=== PATIENT | female | born 2005 | race Caucasian/White ===

== ENCOUNTER 2025-05-10 13:53 | Outpatient (CLI) | payer OTHER, SELFPAY ==
--- OUTSIDE RECORDS SUMMARY | 2005-12-31 | XMS_ITS | Encounter Summary ---
Author Organization [facility] Address [address] [place] [address] Care Team Providers Care Facing Cutting Machine Operator Name Role Phone Unavailable Primary Care Provider Unavailabl e Encounter Details Date Type Department Care Team (Late st Contact Info) Description 12/31/2005 Hospital Encounter [facility] Department of Radiology [address] [place] [phone] Social History Tobacco Use Types Packs/Day Years Used Date Smoking Tobacco: Never Smokeless Tobacco: Never Intimate Partner Violence Answer Date R ecorded If you are in a relationship , do you feel safe in that relationship? Yes 09/30/2019 Safe in relationship? (18 and older) Not on file 09/30/2019 Safety and Environment Answer Date Deon rded Do you have any concerns of physical abuse, sexual abuse, or neglect of your child? No 09/30/2019 Is an adult hurting you or your family? No 09/30/2019 Has someone ever touched you in a sexual way that was not ok with you? No 09/30/2019 Someone hurting you or family (18 and older) Not on file 09/30/2019 Historical abuse worry Not on file 0 If you have firearms in the home, are they all in locked storage AND unloaded? Not on file 09/30/2019 Comments Unknown Sex and Gender Information Value Date Recorded Sex Assigned at Not on file Legal Sex Female 5:16 AM EST Gender Identity Not on file Sexual Orientation Not on file documented as of this encounter Plan of Treatment Not on file documented as of this encounter Visit Diagnoses Not on filedocumented in this encounter
--- OUTSIDE RECORDS SUMMARY | 2025-05-11 10:30 | XMS_ITS | Clinical Summary ---
Author Organization [facility] Address [address] [place] [address] Care Team Providers Care Tax Assessor Name Role Phone Unavailable Primary Care Provider Unavailabl e Source Comments This information has been disclosed to you from confidential records protectedfrom disclosure by state law. You shall make no further disclosure of thisinformation without the specific, written, and informed release of theindividual to whom it pertains, or as otherwise permitted by law. A generalauthorization for the release of medical or other information is not sufficientfor the purposes of therelease of HIV test results or diagnoses. [id number] Social History Tobacco Use Types Packs/Day Years Used Date Smoking Tobacco: Never Assessed Comments Unknown Sex and Gender Information Value Date Recorded Sex Assigned at Not on file Legal Sex Female 9:28 PM EST Gender Identity Not on file Sexual Orientation Not on file Plan of Treatment Not on file Insurance [employer] [facility]
--- OUTSIDE RECORDS SUMMARY | 2025-05-11 10:30 | XMS_ITS | Clinical Summary ---
Author Organization [facility] Address [address] [place] [address] Care Team Providers Care Charge Histotechnologist Name Role Phone Martinez Jackson M.D. Primary Care Provider + Source Comments [facility] is fully rolled out with thefollowing exceptions:General Clinical Research [facility] Allergies No known active allergies Medications norgestimate-eth inyl estradiol (ORTHO-CYCLEN) 0.25-35 MG-MCG tablet Take 1 Tab by mouth. 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 Social History Tobacco Use Types Packs/Day Years [...] on file Sexual Orientation Not on file Last Filed Vital Signs Vital Sign Reading Time Taken Comments Blood Pressure 127/70 09/30/2019 1:59 PM EST Pulse 80 09/30/2019 1:59 PM EST Temperature - - Respiratory Rate - - Oxygen Saturation - - Inhaled Oxygen Concentration - - Weight 75.7 kg (166 lb 14.2 oz) 09/30/2019 1:59 PM EST Height 164.5 cm (5' 4.76 ) 09/30/2019 1:59 PM ES T Body Mass Index 27.97 09/30/2019 1:59 PM EST Plan of Treatment Health Maintenance Due Date Last Done Comments MENINGOCOCCAL B VACCINE (1 of 2 - Standard) 2020 AMB SEASONAL FLU VACCINE (#1) 05/02/2025 COVID-19 Vaccine ( - season) 2025 DTAP/Tdap/Td IMMUNIZATION (7 - Td or Tdap) 10/29/2025 10/30/2015, 04/11/2008, 04/11/2008, Additional history exists HEPATITIS B IMMUNIZATION Completed 005, 2004, 2004 HIB IMMUNIZATION Completed 04/11/2005, , 2004 PNEUMOCOCCAL IMMUNIZATION Aged Out 2004, 2004, 2004, Additional history exists No longer eligible based on patient's age to complete this topic IPV IMMUNIZATION Completed 04/11/2008, , 07/19/2005, Additional history exists MMR IMMUNIZATION Completed 04/11/2008, 04/11/2005 VARICELLA IMMUNIZATION Completed 04/11/2008, 2004 MCV4 IMMUNIZATION Aged Out 10/30/2015 No longer eligible based on patient's age to complete this topic HPV IMMUNIZATION Completed 09/03/2016, , 02/12/2016 HEPATITIS A IMMUN (OPTIONAL 2-17 YRS) Discontinued 05/19/2018, 11/13/2017 Respiratory Syncytial Virus (RSV) <20mo Aged Out No longer eligible based on patient's age to complete this topic Insurance AETNA [facility] Care Teams Charge Histotechnologist Relationship Specialty Start Date End Date Martinez Jackson M.D. [place] [phone] [facility] [place] [address] PCP - General External Family Practice 09/22/19
--- OUTSIDE RECORDS SUMMARY | 2025-05-11 10:30 | XMS_ITS | Clinical Summary ---
Author Organization [facility] Address [address] [place], [place] [phone] Phone Care Team Providers Care Byproduct Engineer Name Role Phone Martinez Jackson MD Primary Care Provider Allergies Active Allergy Reactions Criticality Noted Date Comments Bee Pollen Anaphylaxis High 01/15/2017 Medications norgestimate-et hinyl estradioL (ESTARYLLA) 0.25-35 mg-mcg Oral TabletIndicatio ns:Menorrhagia with irregular cycle Take 1 Tablet by mouth daily. 28 Tablet 11 09/03/2024 Active hydrOXYzine (VISTARIL) 25 mg Oral CapsuleIndicati ons:Urticaria Take 1 Capsule by mouth 3 times daily as needed. 30 Capsule 02/15/2025 Active fluconazole (DIFLUCAN) 150 mg Oral Tablet Take 1 Tablet by mouth once for 1 dose. 1 Tablet 05/09/2025 05/09/20 25 Active Problems Problem Noted Date Diagnosed Date Acute appendicitis with loca lized peritonitis, without perforation, abscess, or gangrene 11/20/2024 Vapes nicotine containing substance 09/03/2024 Assessment & Plan (09/03/2024 8:49 AM EST): Encouraged cessation Menorrhagia with irregular cycle 05/07/2019 Assessment & Plan (09/03/2024 8:49 AM EST): On depo for 4 years, wanting to switch back to OCP Orders: norgestimate-ethinyl estradioL (ESTARYLLA) 0.25-35 mg-mcg Oral Tablet; Take 1 Tablet by mouth daily. 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 Recommended family complete the treatment. We will go and put her on homebound as she is not inclined to go to school under the circumstances and I agree. We will put her on homebound until she has enough resumption of her facial function that she looks more normal to her peers. Discussed the natural history of the disease. They do have neurology follow-up at the end of the month if she is not improved by that point although I advised and there was probably really nothing that anyone could do other than the treatment she is already taking. Acne vulgaris 05/07/2019 06/21/2020 Overview (05/07/2019): Discussed skin care. Menstrual regulation may help - rx for OCP Encounters Date Type Department Care Team Description 02/18/2025 Results Follow-Up [facility] [address] [place] [phone] Hamida Olvera APRN ALLERGEN, FOOD, COMMON ADULT PANEL-REF LAB, ALLERGEN, REGION 5 RESPIRATORY PANEL-REF LAB 02/15/2025 10:00 AM EDT Office Visit [facility] [place] [address] [place] [phone] Hamida Olvera APRN Urticaria (Primary Dx) from Last 3 Months Immunizations Immunization Administration Dates Next Due DTaP 04/11/2008, 5,2004,08/15,2004 DTaP, Unspecified Formulation 04/11/2008 ,07/19/2005,2004,08/15,2004 HPV 9 Valent 09/03/2016,04/16/2016,02/12/2016 Hepatitis A, Ped/Adol, 2 Dose 05/19/2018, 018 Hepatitis B, Adult 11/17/2023 Hepatitis B, Ped/Adol 04/11/2005,2004,06/01 Hepatitis B, Unspecified Formulation 04/11/2005, 2004,2004 HiB, Unspecified Formulation 04/11/2005,08/15/20 04,2004 IPV 04/11/2008, 6,07/19/2005,08/15,2004 Influenza Patient Reported 07/02/2024 Influenza Vaccine Quadrivalent 11/17/2023 LAST MANUFACTURED 2010-Pneum ococcal Conjugate 7 Valent 07/17/2005,2004,2004,06/13 MMR 04/11/2008,04/11/2005 Meningococcal Conjugate 06/21/2020,10/30/2015 Meningococcal MCV4, Unspecif ied Formulation 10/30/2015 PPD Test 11/17/2023 Tdap 10/30/2015 Varicella 11/17/2023,04/11/2008,04/11/2005 Surgical History Surgery Date Site/Laterality Comments APPENDECTOMY 11/21/2024 N/A ROBOTIC APPENDECTOMY; Surgeon: Uli Mcclain MD; Location: [facility] MAIN OR; Service: General Medical History Medical History Date Comments Allergy ADHD (attention deficit hyperactivity disorder) Family History Medical History Relation Name Comments No Known Problems Brother 1 No Known Problems Brother 2 No Known Problems Maternal Grandfather No Known Problems Maternal Grandmother Asthma Mother Hypertension Mother Migraines Mother Cancer Paternal Grandfather No Known Problems Paternal Grandmother Breast Cancer Neg Hx Colon Cancer Neg Hx Relation Name Status Comments Brother 1 Alive Brother 2 Alive Father Alive Maternal Grandfather Alive Maternal Grandmother Alive Mother Alive Paternal Grandfather Alive Paternal Grandmother Alive Social History Tobacco Use Types Packs/Day Years Used Date Smoking Tobacco: Never Smokeless Tobacco: Never Tobacco Cessation:Counseling Given: Not Answered Alcohol Use Standard Drinks/Week Comments No 0 (1 standard drink = 0.6 oz pur e alcohol) [facility] Utilities Answer Date Recorded In the past 12 months has th e electric, gas, oil, or water company threatened to shut off services in your home? No 11/21/2024 Overall Financial Resource Strain (CARDIA) Answe r Date Recorded How hard is it for you to pa y for the very basics like food, housing, medical care, and heating? Not hard at all 11/21/2024 PHQ-2 Answer Date Recorded PHQ-2 Total Score 0 11/21/2024 [facility] - Occupational Stress Questionnaire Answer Date Recorded Do you feel stress - tense, restless, nervous, or anxious, or unable to sleep at night because your mind is troubled all the time - these days? Not at all 11/23/2024 Exercise Vital Sign Answer Date Recorde d On average, how many days pe r week do you engage in moderate to strenuous exercise (like a brisk walk)? 0 days 11/23/2024 On average, how many minutes do you engage in exercise at this level? 0 min 11/23/2024 Hunger Vital Sign Answer Date Recorded Within the past 12 months, y ou worried that your food would run out before you got the money to buy more. Never true 11/22/19 25 Within the past 12 months, t he food you bought just didn't last and you didn't have money to get more. Never true 11/21/2024 Housing Stability Vital Sign Answer Zachery e Recorded In the last 12 months, was t here a time when you were not able to pay the mortgage or rent on time? No 11/23/2024 In the past 12 months, how m any times have you moved where you were living? 1 11/23/2024 At any time in the past 12 m [facility], were you homeless or living in a skilled nursing (including now)? No 11/23/2024 [facility] HRSN CMS IP Transportation Answer D ate Recorded In the past 12 months, has l ack of reliable transportation kept you from medical appointments, meetings, work or from getting things needed for daily living? No 11/21/2024 Sexually Active Control Partners Comments Yes Male Comments No Sex and Gender Information Value Date Recorded Sex Assigned at Not on file Legal Sex Female 8:21 PM EDT Gender Identity Not on file Sexual Orientation Not on file Obstetrics History Last Filed Vital Signs Vital Sign Reading Time Taken Comments Blood Pressure 118/72 02/15/2025 10:04 AM EDT Pulse 76 02/15/2025 10:04 AM EDT Temperature 36.3 C (97.3 F) 02/15/2025 10:04 AM EDT Respiratory Rate 18 02/15/2025 10:04 AM EDT Oxygen Saturation 97% 02/15/2025 10:04 AM EDT Inhaled Oxygen Concentration - - Weight 72.6 kg (160 lb) 02/15/2025 10:04 AM EDT Height 165.1 cm (5' 5 ) 11/21/2024 12:36 AM EDT Body Mass Index 26.63 11/21/2024 12:36 AM EDT Plan of Treatment Health Maintenance Due Date Last Done Comments Meningococcal B Vaccine (1 of 2 - Standard) 2020 Cervical Cancer Screening 2025 Pap Smear 2025 COVID-19 Vaccine ( season) 2025 Influenza Vaccine (#1) 2025 , 11/17/2023, 11/27/2016 (Declined), Additional history exists Annual Wellness Exam 09/03/2025 09/03/2024 Chlamydia Screening 09/03/2025 09/03/2024, 12/19/2021, 01/02/2021 DTaP/TDaP/Td (7 - Td or Tdap) 10/29/2025 10/30/2015, 04/11/2008, 04/11/2008, Additional history exists Pneumococcal Vaccine 0-49 Aged Out 2004, 2004, 2004, Additional history exists No longer eligible based on patient's age to complete this topic HPV Completed 09/03/2016, 04/01, 02/12/2016 Hepatitis B Vaccine Completed 11/17/2023, 04/11/2005, 04/11/2005, Additional history exists Goals Goal Patient Goal Type Associated Problems Recent Progress Patient-Stated? Author Maintain a healthy diet, exercise regularly and maintain an ideal body weight General No Kota Hickey MD Procedures Procedure Name Priority Date/Time Associated Diagnosis Comments ALLERGEN, REGION 5 RESPIRATORY PANEL-REF LAB Routine 02/15/2025 10:41 AM EDT Urticaria PEDXMZZKY-KSRXE-9,3- GALACTOSE (ALPHA-GAL) IGE - REF LAB Routine 02/15/2025 10:41 AM EDT Urticaria ALLERGEN, FOOD, COMMON ADULT PANEL-REF LAB Routine 02/15/2025 10:41 AM EDT Urticaria CHLAMYDIA/GC BY TMA Routine 09/03/2024 8 :57 AM EST Screening for STDs (sexually transmitted diseases) from Last 3 Months or Most Recently Relevant to Health Maintenance Results * KIAJBDZKY-XSDOS-8,3-GALACTOSE (ALPHA-GAL) IGE - REF LAB (02/15/2025 10:41 AM EDT) Alpha-Gal IgE <0.10 <=0.09 kU/L 02/18/2025 1:55 PM EDT [facility] Comment: INTERPRETIVE INFORMATION: Allergen, Food, Alpha-Gal, IgE Allergen results of 0.10-0.34 kU/L are intended for specialist use as the clinical relevance is undetermined. Even though increasing ranges are reflective of increasing concentrations of allergen-specific IgE, these concentrations may not correlate with the degree of clinical response or skin testing results when challenged with a specific allergen. The correlation of allergy laboratory results with clinical history and in vivo reactivity to specific allergens is essential. A negative test may not rule out clinical allergy or even anaphylaxis. Performed By: [facility] [address] [place] [address] Manager Trade Marketing: Koby Johnson MD, PhD CLIA Number: [id number] Blood VENOUS BLOOD / Unknown Venipuncture / Unknown 02/15/2025 10:41 AM EDT 02/15/2025 10:41 AM EDT Hamida Olvera APRN CHEMISTRY ORDERABLES Final Result [facility] [address], [place] [id number] * ALLERGEN, REGION 5 RESPIRATORY PANEL-REF LAB (02/15/2025 10:41 AM EDT) [facility] Common Ragweed <0.10 <=0.34 kU/L 02/18/2025 6:38 AM EDT [facility] CockroachGerman 0.10 <=0.34 kU/L 02/18/2025 6:38 AM EDT [facility] Bristol Tree <0.10 <=0.34 kU/L 02/18/2025 6:38 AM EDT [facility] Heron Tree <0.10 <=0.34 kU/L 02/18/2025 6:38 AM EDT [facility] Pecan Tree <0.10 <=0.34 kU/L 02/18/2025 6:38 AM EDT [facility] Mouse Epi <0.10 <=0.34 kU/L 02/18/2025 6:38 AM EDT [facility] M. racemosus <0.10 <=0.34 kU/L 02/18/2025 6:38 AM EDT [facility] White [place] Tree <0.10 <=0.34 kU/L 02/18/2025 6:38 AM EDT [facility] Dog Dander <0.10 <=0.34 kU/L 02/18/2025 6:38 AM EDT [facility] Sheep [place] <0.10 <=0.34 kU/L 02/18/2025 6:38 AM EDT [facility] Comment: Performed By: [facility] [address] [place] [id number] Manager Trade Marketing: Koby Johnson MD, PhD CLIA Number: [id number] IgE 72 <=214 kU/L 02/18/2025 6:38 AM EDT [facility] Comment: REFERENCE INTERVAL: Immunoglobulin E, Serum Access complete set of age- and/or gender-specific reference intervals for this test in the [facility] Test Directory ([employer]). Alternaria alt <0.10 <=0.34 kU/L 02/18/2025 6:38 AM EDT [facility] Ouray/Maple <0.10 <=0.34 kU/L 02/18/2025 6:38 AM EDT [facility] Cat Epi/Dander <0.10 <=0.34 kU/L 02/18/2025 6:38 AM EDT [facility] Mountain [place] Tree <0.10 <=0.34 kU/L 02/18/2025 6:38 AM EDT [facility] Bronx Tree <0.10 <=0.34 kU/L 02/18/2025 6:38 AM EDT [facility] Pigweed <0.10 <=0.34 kU/L 02/18/2025 6:38 AM EDT [facility] Kyrgyz Thistle <0.10 <=0.34 kU/L 02/18/2025 6:38 AM EDT [facility] Freeman Grass <0.10 <=0.34 kU/L 02/18/2025 6:38 AM EDT [facility] Allergen, Fungi/Mold, Hormodendrum IgE <0.10 <=0.34 kU/L 02/18/2025 6:38 AM EDT [facility] Elm Tree <0.10 <=0.34 kU/L 02/18/2025 6:38 AM EDT [facility] [place] Tree <0.10 <=0.34 kU/L 02/18/2025 6:38 AM EDT [facility] Lykens <0.10 <=0.34 kU/L 02/18/2025 6:38 AM EDT [facility] Allergen, Fungi/Mold, A. fumigatus IgE <0.10 <=0.34 kU/L 02/18/2025 6:38 AM EDT [facility] D pteronyssinus 0.17 <=0.34 kU/L 02/18/2025 6:38 AM EDT [facility] D farinae 0.11 <=0.34 kU/L 02/18/2025 6:38 AM EDT [facility] Bermuda Grass <0.10 <=0.34 kU/L 02/18/2025 6:38 AM EDT [facility] White Johan Tree <0.10 <=0.34 kU/L 02/18/2025 6:38 AM EDT [facility] P.Notatum <0.10 <=0.34 kU/L 02/18/2025 6:38 AM EDT [facility] Blood VENOUS BLOOD / Unknown Venipuncture / Unknown 02/15/2025 10:41 AM EDT 02/15/2025 10:41 AM EDT Hamida Olvera DRUG SAFETY COORDINATOR IMMUNOLOGY ORDERABLES Final Result [facility] [employer] [address] [place] [address] * ALLERGEN, FOOD, COMMON ADULT PANEL-REF LAB (02/15/2025 10:41 AM EDT) IgE 72 <=214 kU/L 02/18/2025 6:51 AM EDT [facility] Comment: REFERENCE INTERVAL: Immunoglobulin E, Serum Access complete set of age- and/or gender-specific reference intervals for this test in the [facility] Test Directory ([employer]). Egg White <0.10 <=0.34 kU/L 02/18/2025 6:51 AM EDT [facility] Milk <0.10 <=0.34 kU/L 02/18/2025 6:51 AM EDT [facility] Sunny Side <0.10 <=0.34 kU/L 02/18/2025 6:51 AM EDT [facility] Soybean <0.10 <=0.34 kU/L 02/18/2025 6:51 AM EDT [facility] Wheat <0.10 <=0.34 kU/L 02/18/2025 6:51 AM EDT [facility] Peanut <0.10 <=0.34 kU/L 02/18/2025 6:51 AM EDT [facility] Allergen, Heron <0.10 <=0.34 kU/L 02/18/2025 6:51 AM EDT [facility] Clam <0.10 <=0.34 kU/L 02/18/2025 6:51 AM EDT [facility] Allergen, Fish, Cod, f3 <0.10 <=0.34 kU/L 02/18/2025 6:51 AM EDT [facility] Allergen, Scallops,f338 <0.10 <=0.34 kU/L 02/18/2025 6:51 AM EDT [facility] Allergen, Shrimp, f24 <0.10 <=0.34 kU/L 02/18/2025 6:51 AM EDT [facility] [employer] Immcap Score See Note 02/18/2025 6:51 AM EDT [facility] [employer] Comment: REFERENCE INTERVAL: Allergen, Interpretation Less than 0.10 kU/L......Class 0.....No significant level detected 0.10-0.34 kU/L...........Class 0/1...Clinical relevance undetermined 0.35-0.70 kU/L...........Class 1.....Low 0.71-3.50 kU/L...........Class 2.....Moderate 3.51-17.50 kU/L..........Class 3.....High 17.51-50.00 kU/L.........Class 4.....Very High 50.01-100.00 kU/L........Class 5.....Very High Greater than 100.00kU/L..Class 6.....Very High Allergen results of 0.10-0.34 kU/L are intended for specialist use as the clinical relevance is undetermined. Even though increasing ranges are reflective of increasing concentrations of allergen-specific IgE, these concentrations may not correlate with the degree of clinical response or skin testing results when challenged with a specific allergen. The correlation of allergy laboratory results with clinical history and in vivo reactivity to specific allergens is essential. A negative test may not rule out clinical allergy or even anaphylaxis. Performed By: [facility] [address] [place] [id number] Manager Trade Marketing: Koby Johnson MD, PhD CLIA Number: [id number] Blood VENOUS BLOOD / Unknown Venipuncture / Unknown 02/15/2025 10:41 AM EDT 02/15/2025 10:41 AM EDT [facility] APRN IMMUNOLOGY ORDERABLES Final Result Performing Organization Address City/[facility]/ZIP Co de Phone Number [facility] [address] [place] [address] * CHLAMYDIA/GC BY TMA (09/03/2024 8:57 AM EST) Chlamydia trachomatis Not Detected Not Detected 09/04/2024 5:04 AM EST PREFERRED [facility] Neisseria gonorrhoeae Not Detected Not Detected 09/04/2024 5:04 AM EST [facility]REFERRED [facility] Swab SPECIMEN FROM VAGINA / Unknown 09/03/2024 8:57 AM EST 09/03/2024 8:57 AM EST Narrative [facility]REFERRED [facility], [facility] - 09/04/2024 5:04 AM EST Testing methodology is title specialist mediated amplification (TMA) using the Aptima Combo 2 assay from [employer]. A negative result does not completely rule out a Chlamydia trachomatis or Neisseria gonorrhoeae infection due to potential inhibitors or levels present below the limit of detection by this assay. Results are dependent on proper collection and transport of specimen. This test is indicated for medical purposes only and should not be used for legal or forensic purposes. The performance characteristics of this assay were validated by the testing laboratory. This assay is FDA cleared to test the following specimens: clinician-collected endocervical, vaginal, male urethral swab specimens, rectal swabs, and throat/pharyngeal swabs; patient collected vaginal specimens within a clinic setting; Thin Prep Specimens in [employer]; and first-stream, unpreserved male and female urine specimens. Detailed methodology is available upon request. Hamida Olvera APRN MICROBIOLOGY - GENERAL ORDE RABLES Final Result [facility] [address] [facility] , [address] [place] [id number] from Last 3 Months or Most Recently Relevant to Health Maintenance Insurance [facility] [id number] [facility] [id number] [place] [id number] Care Teams Byproduct Engineer Relationship Specialty Start Date End Date Martinez Jackson MD [employer] [place] [phone] PCP - General 07/06/09
--- OUTSIDE RECORDS SUMMARY | 2025-05-11 10:30 | XMS_ITS | Encounter Summary ---
Author Organization [place] [address] Care Team Providers Care Gill Box Fixer Name Role Phone Martinez Jackson MD Primary Care Provider [phone] Encounter Details Date Type Department Care Team (Late st Contact Info) Description 02/18/2025 Results Follow-Up SEP Nicole [address] [place] [id number] Hamida Olvera, [employer] [address] [place] [address] [facility], FOOD, COMMON ADULT PANEL-REF LAB, [facility], REGION 5 RESPIRATORY PANEL-REF LAB Social History Tobacco Use Types Packs/Day Years Used Date Smoking Tobacco: Never Smokeless Tobacco: Never Alcohol Use Standard Drinks/Week Comments No 0 (1 standard drink = 0.6 oz pur e alcohol) [facility] Utilities Answer Date Recorded In the past 12 months has [employer], gas, oil, or water [employer] threatened to shut off services in your home? No 11/21/2024 Overall Financial Resource Strain (CARDIA) Answe r Date Recorded How hard is it for you to pa y for the very basics like food, housing, medical care, and heating? Not hard at all 11/21/2024 PHQ-2 Answer Date Recorded PHQ-2 Total Score 0 11/21/2024 [facility] of Occupat ional Health - Occupational Stress Questionnaire Answer Date Recorded [...] money to buy more. Never true 11/22/19 Within the past 12 months, t he [...] any time in the past 12 m [facility], were you homeless or living in a alf (including now)? No 11/23/2024 [facility] Transportation Answer D ate Recorded In [...] on file documented as of this encounter Functional Status * Is the person deaf or does he/she have serious difficulty hearing? Answer Date of Assessment Author No 09/03/2024 8:18 AM Pipo Cast [facility] * Is the person blind or does he/she have serious difficulty seeing even when wearing glasses? Answer Date of Assessment Author No 09/03/2024 8:18 AM Pipo Cast [facility]MA * Does this person have serious difficulty walking or climbing stairs? Answer Date of Assessment Author No 09/03/2024 8:18 AM Pipo Cast [facility] * Does this person have difficulty dressing or bathing? Answer Date of Assessment Author No 09/03/2024 8:18 AM Pipo Cast [facility] * Because of a physical, mental or emotional condition, does this person have difficulty doing errands alone such as visiting a doctor's office or shopping? Answer Date of Assessment Author No 09/03/2024 8:18 AM Pipo Cast [facility]MA documented as of this encounter Mental Status * Because of a physical, mental or emotional condition, does this person have serious difficulty concentrating, remembering or making decisions? Answer Entry Date Author No 09/03/2024 8:18 AM Pipo Cast [facility]MA documented in this encounter Plan of Treatment Not on file documented as of this encounter Goals Goal Patient Goal Type Associated Problems Recent Progress Patient-Stated? Author Maintain a healthy diet, exercise regularly and maintain an ideal body weight General No Kota Hickey MD documented as of this encounter Visit Diagnoses Not on filedocumented in this encounter Care Teams Gill Box Fixer Relationship Specialty Start Date End Date Martinez Jackson MD [email or web address] [facility] [place] [id number] PCP - General 07/06/09 documented as of this encounter
== END 2025-05-10 23:59 | disposition home or self-care (01) ==
LOC: LAB.DROPOF 05-11 10:16
PROVIDERS: PCP Nurse Practitioner; Visit Provider Nurse Practitioner
DX: N94.89 Other specified conditions associated with female genital organs and menstrual cycle (principal); N89.8 Other specified noninflammatory disorders of vagina; R31.9 Hematuria, unspecified
CPT/HCPCS: 87086